=== PATIENT | male | born 1995 | race Two or more races ===

== ENCOUNTER 2023-02-11 22:12 | Emergency (ER) | payer SELFPAY ==
[~2023-02-11] VITALS: Ht 172.7 cm; Wt 90.0 kg
[2023-02-11 22:30] VITALS: RESP 16; O2SAT 100
[2023-02-11 22:41] LABS: Basophils # (auto) 0.2 10 ^3/uL (0-0.2); Basophils % (auto) 0.9 % (0.0-2.0); Eosinophils # (auto) 0.2 10 ^3/uL (0-0.8); Eosinophils % (auto) 0.8 % (0.0-7.0); Hematocrit 50.5 % (41.0-53.0); Hemoglobin 16.7 g/dL (13.5-17.5); Lymphocytes # (auto) 2.5 10 ^3/uL (0.4-5.4); Lymphocytes % (auto) 10.7 % (10.0-50.0); Mean Corpuscular Hemoglobin 30.4 pg (28.0-32.0); Mean Corpuscular Hgb Conc. 33.1 g/dL (32.0-36.0); Mean Corpuscular Volume 91.6 fL (80.0-100.0); Monocytes # (auto) 1.5 10 ^3/uL (0-1.3); Monocytes % (auto) 6.3 % (0.0-12.0); Neutrophils # (auto) 18.7 10 ^3/uL (1.6-8.6); Neutrophils % (auto) 81.3 % (37.0-80.0); Red Blood Cells 5.51 10^6/uL (4.5-5.90); Red Cell Distribution Width 14.3 % (11.8-14.3); White Blood Cell 23.1 10^3/uL (4.4-10.8)
[2023-02-11 23:00] LABS: Partial Thromboplastin Time 23.8 SEC (24.5-34.5); Prothrombin Time 10.5 sec (9.3-11.8)
[2023-02-11] MEDS ORDERED: IOHEXOL 300 MG/ML 100ML BOTTLE IJ ONE (23:09)
[2023-02-11 23:15] LABS: Alanine Aminotransferase 30 U/L (7-40); Albumin 4.8 g/dL (3.2-4.8); Alkaline Phosphatase 213 U/L (46-116); Anion Gap 11 (5-15); Aspartate Aminotransferase 55 U/L (13-40); BUN/Creatinine Ratio 8.6 (10.0-20.0); Bilirubin, Total 0.4 mg/dL (0.2-1.0); Blood Urea Nitrogen 9 mg/dL (9-23); Calcium 8.6 mg/dL (8.7-10.4); Carbon Dioxide 24 mmol/L (20-30); Chloride 104 mmol/L (98-107); Glucose 111 mg/dL (74-106); Sodium 139 mmol/L (136-145)
[2023-02-11 23:16] LABS: Total Protein 7.9 g/dL (5.7-8.2)
[2023-02-11 23:23] LABS: Blood Alcohol 299.7 mg/dL (<10)
[2023-02-12] MEDS ORDERED: LIDOCAINE 1% HCL (LOCAL ANESTH.) INJ 20ML MDV IJ ONE (01:00)
[2023-02-12] MEDS ORDERED: LACTATED RINGER'S 1,000 ML IV ONE (01:30)
[2023-02-12 02:01] VITALS: TEMP 98.8
[2023-02-12] MEDS ORDERED: HYDROcodone-ACET 5/325MG TAB PO ONE (04:15)
[2023-02-12] MEDS ORDERED: ACETAMINOPHEN 500 MG TAB PO ONE (04:15)
[2023-02-12] MEDS ORDERED: SODIUM CHLORIDE 0.9% 1,000 ML IV ONE ×3 (05:15→05:30)
[2023-02-12 05:38] LABS: Hematocrit 45.9 % (41.0-53.0); Hemoglobin 15.1 g/dL (13.5-17.5)
[2023-02-12 06:08] LABS: Alanine Aminotransferase 25 U/L (7-40); Albumin 4.1 g/dL (3.2-4.8); Alkaline Phosphatase 178 U/L (46-116); Anion Gap 9 (5-15); Aspartate Aminotransferase 47 U/L (13-40); BUN/Creatinine Ratio 6.5 (10.0-20.0); Bilirubin, Total 0.6 mg/dL (0.2-1.0); Blood Urea Nitrogen 7 mg/dL (9-23); Calcium 8.2 mg/dL (8.7-10.4); Carbon Dioxide 26 mmol/L (20-30); Chloride 105 mmol/L (98-107); Glucose 122 mg/dL (74-106); Potassium 4.1 mmol/L (3.5-5.1); Sodium 140 mmol/L (136-145)
[2023-02-12 06:09] LABS: Total Protein 6.7 g/dL (5.7-8.2)
[2023-02-12 07:12] VITALS: BP 112/50; PULSE 82
[2023-02-12 09:00] VITALS: RESP 18; O2SAT 98
== END 2023-02-12 07:12 | disposition home or self-care (01) ==
LOC: EDBD 22:12 → ER 22:12
DX: S01.81XA Laceration without foreign body of other part of head, initial encounter (principal); S09.93XA Unspecified injury of face, initial encounter; F10.129 Alcohol abuse with intoxication, unspecified; F07.81 Postconcussional syndrome
CPT/HCPCS: 36415; 70450; 70486; 71260; 72125; 74177; 80053; 80320; 85014; 85018; 85025; 85610; 85730; 96360; 96361; 99285; J2001; J7030; Q9967